=== PATIENT | female | born 1970 | race Caucasian/White ===

== ENCOUNTER 2022-08-23 22:46 | Emergency (ER) | payer OTHER ==
[2022-08-23] MEDS ORDERED: Bacitracin Oint 1 GM U/D Packet TOP ONE (23:13)
[2022-08-23] MEDS ORDERED: Lidocaine 1% 5 ML VIAL INJECT ONE (23:13)
== END 2022-08-23 23:52 | disposition home or self-care (01) ==
LOC: JP.ED 22:46
DX: S51.852A Open bite of left forearm, initial encounter (principal); W54.0XXA Bitten by dog, initial encounter
CPT/HCPCS: 12002; 99282; 99283